=== PATIENT | male | born 1995 | race Caucasian/White ===

== ENCOUNTER 2022-03-26 10:17 | Emergency (ER) | payer BC, SELFPAY ==
--- NOTE | ~2022-03-26 | CT_ITS ---
EXAMINATION: CT HEAD WITHOUT CONTRAST CLINICAL INFORMATION: Daily headaches x 2 weeks. COMPARISON: None TECHNIQUE: Contiguous axial imaging was performed from the skull base to vertex without intravenous administration of contrast. This CT examination was performed using dose optimization techniques as appropriate, variously including the following: *Automated exposure control *Adjustment of mA and/or kV according to patient size (this includes techniques or standardized protocols for targeted exams where dose is matched to indication/reason for exam; i.e. extremities or head) *Use of iterative reconstruction technique DLP: 627 mGy-cm FINDINGS: There is no evidence of acute intracranial hemorrhage or territorial infarction. No abnormal mass effect or midline shift is seen. [place] to white matter differentiation is well preserved. No extra-axial fluid collections are identified. The lateral ventricles are symmetrical but enlarged with mild colpocephaly. 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 The osseous structures and soft tissues are normal. There is normal aeration of bilateral paranasal sinuses and mastoid air cells. CT/CT head/brain wo con IMPRESSION: No acute intracranial process seen.
[2022-03-26 10:22] VITALS: BP 124/97; BP 160/110; PULSE 108; PULSE 95; RESP 20; TEMP 36.7; O2SAT 98; BMI 21.2
[2022-03-26 11:38] LABS: MANUAL DIFF FLAG NO
[2022-03-26 11:42] LABS: Basophils Percent Auto 0.6 % (0-2); Eosinophils Percent Auto 0.2 % (0-4); Hematocrit 49.5 % (42.0-52.0); Hemoglobin 16.9 g/dl (14.0-18.0); Imm Gran Abs Auto 0.01 X10*3/uL (0.00-0.03); Imm Gran Pct Auto 0.2 % (0.0-0.4); Lymphocytes Absolute Auto 1.3 X10*3/uL (1.2-4.9); Lymphocytes Percent Auto 25.2 % (20-40); Mean Corpuscular HGB Conc 34.1 g/dl (31.0-36.0); Mean Corpuscular Hemoglobin 32.1 pg (27.0-33.0); Mean Corpuscular Volume 93.9 fL (80.0-98.0); Mean Platelet Volume 8.9 fL (9.4-12.4); Monocytes Absolute Auto 0.5 X10*3/uL (0.1-1.2); Monocytes Percent Auto 9.9 % (2-11); Neutrophils Absolute Auto 3.2 x10*3/uL (2.0-8.3); Neutrophils Percent Auto 63.9 % (45-73); Platelet Count 306 X10*3/uL (160-400); Red Blood Count 5.27 X10*6/uL (4.60-5.80); Red Cell Distribution Width 11.5 % (11.0-16.0)
[2022-03-26 11:50] LABS: Appearance Urine HAZY; Color Urine YELLOW; Glucose Urine UA NEG (NEG); Leukocyte Esterase Urine NEG (NEG); Nitrite Urine NEG (NEG); Urine Blood NEG (NEG); Urine Ketones NEG (NEG); Urine Protein NEG (NEG-TRACE)
[2022-03-26] MEDS: 0.9 % Sodium Chloride 1,000 ML 999 ML IV (11:50)
[2022-03-26] MEDS: Metoclopramide HCl 10 MG/2 ML VIAL IVPUSH (11:50)
[2022-03-26] MEDS: Acetaminophen 325 MG TABLET 650 MG PO (11:50)
[2022-03-26 11:55] LABS: Alanine Aminotransferase 23 U/L (0-40); Albumin Level 4.5 g/dL (3.5-5.0); Alkaline Phosphatase 92 U/L (39-117); Anion Gap 12 (12-20); Aspartate Amino Transferase 17 U/L (5-37); Bilirubin Direct 0.4 mg/dL (0.0-0.5); Bilirubin Total 0.9 mg/dL (0.0-1.0); Blood Urea Nitrogen 13 mg/dL (9-16); Calcium 9.7 mg/dL (8.4-10.2); Carbon Dioxide 26 mmol/L (22-29); Chloride 105 mmol/L (96-108); Creatinine Clr Calc Pharmacy 120.5; Estimated Glomerular Filt Rate > 60; Glucose Random 96 mg/dL (60-115); Magnesium 2.3 mg/dL (1.6-2.6); Potassium 4.4 mmol/L (3.3-5.1); Sodium 139 mmol/L (135-145); Total Protein 7.5 g/dL (6.5-8.0)
--- NOTE | 2022-03-26 12:19 | ED.HA ---
HPI - Headache General Chief Complaint: Headache Stated Complaint: HEADACHE X'S 2 WEEKS Time Seen by Provider: 03/26/22 11:06 Source: patient Mode of arrival: ambulatory History of Present Illness HPI Narrative: 26-year-old male with past medical history of cerebral palsy, presenting [facility] [place] [facility] headaches x2 weeks and suspected tick bite to left testicle. Patient reports he does not usually get headaches, headaches have been daily for 2 weeks, not maximal in onset, worse throughout the day. Admit they 1st noticed dark spot to left testicle family friend practitioner prescribed doxycycline x7 days which patient finished 2 days ago. Mother also reports subjective fever a few weeks ago, no longer at present. Patient admits to intermittent nausea. Denies neck pain/stiffness, vision change/loss, CP/SOB, abdominal pain, vomiting, district her pain/redness, dysuria, recent travel MD elicited complaint: headache Pertinent past history: migraines Onset (ago): week(s) Related Data Home Medications Medication Instructions Recorded Confirmed fluticasone propionate 50 1 spray INTRANASAL BID 03/26/22 03/26/22 mcg/actuation nasal spray,suspension (Flonase Allergy Relief) loratadine 10 mg tablet (Claritin) 10 mg PO DAILY 03/26/22 03/26/22 Previous Rx's Medication Instructions Recorded moulwqjmbq-pyxyfkqyiohqe-nzomcufe 1 cap PO Q4-6H PRN #14 cap 03/26/22 50 mg-300 mg-40 mg capsule (Fioricet) Allergies Allergy/AdvReac Type Severity Reaction Status Date / Time latex Allergy Mild Rash Verified 03/26/22 09:09 Review of Systems Review of Systems: Constitutional: No Fever, No Chills, No Fatigue, No Malaise ENT/Mouth: =No Ear Pain, No Nasal Congestion, No Sinus Pain, No Hoarseness, No sore throat, No Rhinorrhea, No Swallowing Difficulty Eyes: No Eye Pain, No Swelling, No Redness, = No Discharge, No Vision Changes Cardiovascular: No Chest Pain, No SOB, No Edema, No Palpitations Respiratory: No Cough, No Sputum, No Dyspnea Gastrointestinal: + Nausea, No Vomiting, No Diarrhea, No Abdominal pain Genitourinary: No Dysuria, No Urinary Frequency, No Hematuria, No Urinary Incontinence/retention, No Flank Pain Musculoskeletal: No joint pain, No Myalgias, No Joint Swelling Skin: + Skin Lesions, No rash Neuro: No Weakness, No Numbness, No Paresthesias, No Loss of Consciousness, No Dizziness, + Headache Yes all other systems are reviewed and are negative Neurologic: Denies Abnormal speech present [facility] Past Medical History Attestation statement: The following information was validated with the patient. Medical History Cerebral palsy Social History Social History Advance Directives: No Advance Directives Information Provided: No Physical Exam Vital Signs: Vital Signs: Last Vital Signs Temp 98.0 F 03/26/22 10:22 Pulse 108 H 03/26/22 10:22 Resp 20 03/26/22 10:22 BP 124/97 H 03/26/22 10:22 Pulse Ox 98 03/26/22 10:22 BMI result Body Mass Index 21.2 Const: General: cooperative, healthy appearing and no acute distress Orientation/consciousness: patient oriented x3 Limitations: no limitations HEENT: Head: Yes normal to inspection and Yes atraumatic Ears: hearing grossly normal bilaterally General nose exam: Normal external nose present Face and sinus: Yes normal facial exam Throat: Yes posterior oropharynx normal Eyes: General: appearance normal, both eyes and all related structures Pupils: Equal, round and reactive pupils present EOM: EOMs intact bilaterally Neck: Neck: Yes normal visual inspection, Yes no meningeal signs, Yes supple and No anterior neck swelling Resp: Effort & Inspection: normal respiratory effort and no respiratory distress Auscultation: clear to auscultation bilaterally, no rales, no rhonchi and no wheezes Cardio: Rate: regular rate Heart sounds: S1 normal heart sound present and S2 normal heart sound present GI: Inspection: Yes normal to inspection Palpation (GI): Soft to palpation, nontender, no guarding and not rigid : Other: + small flat darkened lesion noted to L scrotum without surrounding erythema, nontender, no fluctuance/induration Skin: Rashes: no rashes Wounds: no wounds Neuro: General: patient oriented x3, gait normal, tone normal, moves all extremities, no meningeal signs, no focal motor deficits and CN's II-XI intact bilaterally Cranial nerves: Yes CN's II-XII intact bilaterally, Yes Equal, round and reactive pupils present and Yes Bilaterally intact EOM present Cognition (Neuro): normal cognition Speech: No Abnormal speech present Gait exam (Neuro): Normal gait present Extrem: General: Yes normal to inspection Course Course Course Narrative: -labs unremarkable. UA negative. CT head/brain wo con IMPRESSION: No acute intracranial process seen. > results discussed with patient and mother including worrisome signs symptoms and strict return precautions. Will extend Doxycycline x1 more week pending Lyme/tick-borne studies Patient reports mild symptomatic headache improvement s/p medications given in the ED. Will DC with trial of Fioricet MDM - Headache MDM Narrative Medical decision making narrative: 26-year-old male with past medical history of cerebral palsy, presenting to ED [facility] [place] for headaches x2 weeks and suspected tick bite to left testicle. On exam vital signs stable, NAD, nontoxic appearing, physical exam the blood, no focal neuro deficits, small doctor area noted to left testicle without appreciable tick/insect bite. Concern for complicated migraine headache vs ?Lyme vs tick borne illness. R/o mass. Unlikely meningitis/encephalitis or SAH Plan: Labs, UA, head CT, Lyme/tick-borne illnesses, symptomatic treatment, re-evaluate Differential Diagnosis Differential diagnosis: Likely migraine and headache Medical Records Attestation: I reviewed the patient's medical records. Lab Data Attestation: I reviewed the patient's lab results. Result diagrams: 03/26/22 11:30 03/26/22 11:30 Labs: Lab Results 03/26/22 03/26/22 03/26/22 Range/Units 11:30 11:30 11:30 WBC 5.0 (4.8-10.8) X10*3/uL RBC 5.27 (4.60-5.80) X10*6/uL Hgb 16.9 (14.0-18.0) g/dl Hct 49.5 (42.0-52.0) % MCV 93.9 (80.0-98.0) fL MCH 32.1 (27.0-33.0) pg MCHC 34.1 (31.0-36.0) g/dl RDW 11.5 (11.0-16.0) % Plt Count 306 (160-400) X10*3/uL MPV 8.9 L (9.4-12.4) fL Immature Gran % (Auto) 0.2 (0.0-0.4) % Neut % (Auto) 63.9 (45-73) % Lymph % (Auto) 25.2 (20-40) % [place] % (Auto) 9.9 (2-11) % Eos % (Auto) 0.2 (0-4) % Baso % (Auto) 0.6 (0-2) % Lymph # (Auto) 1.3 (1.2-4.9) X10*3/uL [place] # (Auto) 0.5 (0.1-1.2) X10*3/uL Eos # (Auto) 0.0 (0.0-0.4) X10*3/uL Baso # (Auto) 0.0 (0.0-0.2) X10*3/uL Abs Immat Gran (auto) 0.01 (0.00-0.03) X10*3/uL Absolute Neuts (auto) 3.2 (2.0-8.3) x10*3/uL Absolute Nucleated RBC 0.000 (0.0-0.012) X10*3/uL Nucleated RBC % (auto) 0.0 (0.0-0.2) /100WBC Sodium 139 (135-145) mmol/L Potassium 4.4 (3.3-5.1) mmol/L Chloride 105 (96-108) mmol/L Carbon Dioxide 26 (22-29) mmol/L Anion Gap 12 (12-20) BUN 13 (9-16) mg/dL Creatinine 1.00 (0.5-1.4) mg/dL Estim Creat Clear Calc 120.5 Estimated GFR > 60 Random Glucose 96 (60-115) mg/dL Calcium 9.7 (8.4-10.2) mg/dL Magnesium 2.3 (1.6-2.6) mg/dL Total Bilirubin 0.9 (0.0-1.0) mg/dL Direct Bilirubin 0.4 (0.0-0.5) mg/dL AST 17 (5-37) U/L ALT 23 (0-40) U/L Alkaline Phosphatase 92 (39-117) U/L Total Protein 7.5 (6.5-8.0) g/dL Albumin 4.5 (3.5-5.0) g/dL Urine Color YELLOW Urine Appearance HAZY Urine pH 8.0 (5.0-8.0) Ur Specific [place] 1.010 (1.005-1.025) Urine Protein NEG (NEG-TRACE) MG/DL Urine Glucose (UA) NEG (NEG) MG/DL Urine Ketones NEG (NEG) MG/DL Urine Blood NEG (NEG) Urine Nitrite NEG (NEG) Ur Leukocyte Esterase NEG (NEG) Discharge Plan Discharge Clinical Impression: Headache Patient Disposition: Home, Self-Care Instructions: Insect Bite or Sting (ED), Acute Headache (DC) Additional Instructions: Your blood work was reassuring today in the emergency department. Her head CT is negative. Your current tick-borne illnesses are pending the results should be back in a couple days. Doxycycline is an antibiotic to treat possible tick-borne disease, take for an additional week, if anything is positive we will call you in extending antibiotics as needed. Take Tylenol and Motrin home for headache Symptoms persist or worsen, headache becomes unbearable, you have nausea/vomiting or weakness, vision changes speech return to the emergency department Prescriptions: New epwplnguxp-kzlhzfvgeltzh-ypsw [Fioricet] 50-300-40 mg capsule 1 cap PO Q4-6H PRN (Reason: headache) Qty: 14 0RF No Action fluticasone propionate [Flonase Allergy Relief] 50 mcg/actuation spray,suspension 1 spray intranasal BID 0RF Rx Instructions: administer into each nostril loratadine [Claritin] 10 mg tablet 10 mg PO DAILY 0RF Referrals: Edith Chong RN [Emergency Nurse] - 3 days
[2022-03-26] MEDS: Ketorolac Tromethamine 15 MG/ML VIAL IVPUSH (13:15)
[2022-03-28 09:06] LABS: Lyme Abs Screen <0.90 index
[2022-03-29 20:56] LABS: A. Phagocytphilium DNA,RT-PCR NOT DETECTED (NOT DETECTED); Babesia Microti DNA, RT-PCR NOT DETECTED (NOT DETECTED); Borrelia Miyamotoi,DNA RT-PCR NOT DETECTED (NOT DETECTED); E.Chaffeensis DNA RT-PCR NOT DETECTED (NOT DETECTED); Lyme(Borrelia ssp)DNA RT-PCR NOT DETECTED (NOT DETECTED); Source-Tick borne disease BLOOD
== END 2022-03-26 14:24 | disposition home or self-care (01) ==
PROVIDERS: Physician Assistant; Emergency Provider Emergency Medicine
DX: R51.9 Headache, unspecified (principal); G80.9 Cerebral palsy, unspecified
CPT/HCPCS: 36415; 70450; 80048; 80076; 81003; 83735; 85025; 86617; 86618; 87798; 87801; 96361; 96374; 96375; 99284; J1885; J2765